=== PATIENT | female | born 1950 | race Caucasian/White ===

== ENCOUNTER 2018-09-29 18:26 | Emergency (ER) | payer OTHER ==
[~2018-09-29] VITALS: Ht 165.1 cm; Wt 95.3 kg
[~2018-09-29 18:26] MED LIST: ASA81 MG; COZAAR25 MG; CRESTOR5 MG; GLIMEPIRIDE1 MG
[2018-09-29] MEDS ORDERED: COZAAR50 MG PO (18:45)
[2018-09-29] MEDS ORDERED: GLIMEPIRIDE4 MG PO (18:47)
[2018-09-29] MEDS ORDERED: METFORMIN HCL1000 M1 PO (18:47)
[2018-09-29] MEDS ORDERED: [UNRECOGNIZED DRUG - OTHER] PO (18:48)
[2018-09-29] MEDS ORDERED: PLAVIX75 MG PO (18:49)
[2018-09-29] MEDS ORDERED: FENOFIBRATE145 MG PO (18:50)
[2018-09-29] MEDS ORDERED: SIMVASTATIN5 MG PO (18:50)
[2018-09-29] MEDS ORDERED: LANTUS SOL100 UNIT/1 SUBCUTANEO (18:51)
== END 2018-09-29 19:51 | disposition home or self-care (01) ==
LOC: ER 18:26
DX: R45.4 Irritability and anger (principal); F41.1 Generalized anxiety disorder; E11.9 Type 2 diabetes mellitus without complications

== ENCOUNTER 2019-06-04 14:30 | Emergency (ER) | payer OTHER ==
[~2019-06-04] VITALS: Ht 165.1 cm; Wt 93.0 kg
[~2019-06-04 14:30] MED LIST changes: +COZAAR50 MG PO; +FENOFIBRATE145 MG PO; +GLIMEPIRIDE4 MG PO; +LANTUS SOL100 UNIT/1 SUBCUTANEO; +METFORMIN HCL1000 M1 PO; +PLAVIX75 MG PO; +SIMVASTATIN5 MG PO; +[UNRECOGNIZED DRUG - OTHER] PO
== END 2019-06-04 19:57 | disposition home or self-care (01) ==
LOC: ER 14:30
DX: R42 Dizziness and giddiness (principal)

== ENCOUNTER → 2020-02-07 | Emergency (ER) | payer OTHER ==
[~2020-02-07] VITALS: Ht 167.6 cm; Wt 68.0 kg
== END | disposition left against medical advice (07) ==
LOC: ER 11:52
DX: U07.1 COVID-19 (principal); J12.89 Other viral pneumonia

== ENCOUNTER 2020-11-09 10:59 | Outpatient (CLI) | payer OTHER | END 2020-11-09 11:21 | disposition home or self-care (01) | LOC: TOM 10:59 | PROVIDERS: ATTEND Internal Medicine Cardiovascular Disease | DX: R10.84 Generalized abdominal pain (principal); M25.551 Pain in right hip; M25.552 Pain in left hip ==

== ENCOUNTER 2021-03-30 08:00 | Outpatient (CLI) | payer OTHER | END 2021-03-30 08:30 | disposition home or self-care (01) | LOC: PPH VACUNA 08:00 | DX: Z23 Encounter for immunization (principal) ==

== ENCOUNTER 2022-08-15 12:00 | Emergency (ER) | payer OTHER ==
[~2022-08-15] VITALS: Ht 165.1 cm; Wt 67.6 kg
[2022-08-15] MEDS ORDERED: LEVOTHYROXINE25 MCG PO (12:21)
== END 2022-08-15 15:43 | disposition home or self-care (01) ==
LOC: ER 12:00
DX: J40 Bronchitis, not specified as acute or chronic (principal); I10 Essential (primary) hypertension; Z20.822 Contact with and (suspected) exposure to COVID-19; E11.9 Type 2 diabetes mellitus without complications; Z79.84 Long term (current) use of oral hypoglycemic drugs

== ENCOUNTER 2024-02-25 13:26 | Emergency (ER) | payer OTHER ==
[~2024-02-25] VITALS: Ht 165.1 cm; Wt 68.0 kg
[~2024-02-25 13:26] MED LIST changes: +LEVOTHYROXINE25 MCG PO
[2024-02-25] MEDS ORDERED: KETOROLAC TROMETHAMINE 30 MG VIAL IM ONE (16:00)
[2024-02-25] MEDS ORDERED: KETOROLAC TROMETHAMINE 30 MG VIAL ONE (16:45)
[2024-02-25] MEDS ORDERED: NAPROXEN500 MG PO (18:02)
== END 2024-02-25 19:21 ==
LOC: ER 13:27
DX: M25.511 Pain in right shoulder (principal); I10 Essential (primary) hypertension; E03.8 Other specified hypothyroidism; E11.9 Type 2 diabetes mellitus without complications; Z79.84 Long term (current) use of oral hypoglycemic drugs
CPT/HCPCS: 73030; 96372; 99283; J1885

== ENCOUNTER 2024-03-07 08:38 | Outpatient (CLI) | payer OTHER ==
[~2024-03-07 08:38] MED LIST changes: +NAPROXEN500 MG PO
== END 2024-03-07 08:46 | disposition home or self-care (01) ==
LOC: RAD 08:38
PROVIDERS: ATTEND Orthopaedic Surgery
DX: M54.50 Low back pain, unspecified (principal); M53.3 Sacrococcygeal disorders, not elsewhere classified; Z96.642 Presence of left artificial hip joint; M24.551 Contracture, right hip

== ENCOUNTER 2024-03-11 11:49 | Outpatient (CLI) | payer OTHER | END 2024-03-11 11:52 | disposition home or self-care (01) | LOC: NUCLEAR 11:49 | PROVIDERS: ATTEND Orthopaedic Surgery | DX: M81.0 Age-related osteoporosis without current pathological fracture (principal) ==

== ENCOUNTER 2024-08-20 07:14 | Emergency (ER) | payer OTHER ==
[~2024-08-20] VITALS: Ht 162.6 cm; Wt 72.6 kg
[2024-08-20 07:28] VITALS: BP 163/80; O2SAT 99
[2024-08-20] MEDS ORDERED: GALANTAMINE HBR8 MG (07:29)
[2024-08-20] MEDS ORDERED: CITALOPRAM HBR20 MG (07:29)
[2024-08-20] MEDS ORDERED: MEMANTINE HCL10 MG (07:29)
[2024-08-20] MEDS ORDERED: CEFTRIAXONE SODIUM 2,000 MG VIAL IV STA (08:45)
[2024-08-20] MEDS ORDERED: ENALAPRILAT DIHYDRATE 1.25 MG/ML VIAL IV STA (08:46)
[2024-08-20] MEDS ORDERED: METHYLPREDNISOLONE SOD SUCC 125 MG VIAL IV STA (08:46)
[2024-08-20] MEDS ORDERED: ENALAPRILAT DIHYDRATE 1.25 MG/ML VIAL IV ONE (08:51)
[2024-08-20] MEDS ORDERED: CEFTRIAXONE SODIUM 2,000 MG VIAL ONE (08:51)
[2024-08-20] MEDS ORDERED: METHYLPREDNISOLONE SOD SUCC 125 MG VIAL ONE (08:51)
[2024-08-20] MEDS ORDERED: LEVALBUTEROL HCL 1.25 MG/3 ML SOLUTION IH SCH (09:00)
[2024-08-20] MEDS ORDERED: IPRATROPIUM BROMIDE 0.5 MG/2.5 ML AMPUL.NEB IH SCH (09:00)
[2024-08-20 09:38] LABS: HEMATOCRIT 34.1 % (36.0-45.00); MEAN CORPUSCULAR HEMOGLOBIN 30.7 pg (27.00-32.0); MEAN CORPUSCULAR HGB CONC 32.4 g/dl (32.0-36.0); PLATELET COUNT 221 K/uL (150-450); RED BLOOD COUNT 3.59 M/uL (4.00-6.00)
[2024-08-20 09:55] LABS: CALCIUM 8.8 mg/dL (8.5-10.1); CREATININE SERUM 1.1 mg/dL (0.55-1.02); GFR 48.29; POTASSIUM 4.81 mEq/L (3.5-5.1)
[2024-08-20] MEDS ORDERED: LEVALBUTEROL HCL 1.25 MG/3 ML SOLUTION IH ONE (10:54)
[2024-08-20] MEDS ORDERED: IPRATROPIUM BROMIDE 0.5 MG/2.5 ML AMPUL.NEB IH ONE (10:55)
== END 2024-08-20 11:44 | disposition home or self-care (01) ==
LOC: ER 07:17
PROVIDERS: General Practice
DX: R05.8 Other specified cough (principal); Z20.822 Contact with and (suspected) exposure to COVID-19
CPT/HCPCS: 36415; 71046; 96365; 99283; J0696; J3490